=== PATIENT | male | born 1995 | race Two or more races ===

== ENCOUNTER 2019-10-30 18:32 | Emergency (ER) | payer MEDICAID ==
[~2019-10-30] VITALS: Ht 177.8 cm; Wt 79.4 kg
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
--- NOTE | 2019-10-30 18:56 | NUR ---
per dr. og, pt will not need any interventions, pt will just be for obs
--- NOTE | 2019-10-30 19:02 | NUR ---
REPORT GIVEN TO MISAEL PISANO FOR [facility]LL[facility]
--- NOTE | 2019-10-30 19:05 | NUR ---
[employer] AT BEDSIDE SPEAKING WITH PATIENT
[2019-10-30 19:22] VITALS: BP 124/71
--- NOTE | 2019-10-30 19:23 | NUR ---
PATIENT IS AAOX3. PATIENT STATES, "THE TAPE IS PULLING ON MY HAIR". TAPE IS READJUSTED ON THE IV LINE. CONNECTED TO MONITOR. BREATHING EVENLY AND UNLABORED ON ROOM AIR. SITTER AT BEDSIDE.
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
--- NOTE | 2019-10-30 19:33 | NUR ---
PATIENT NOTIFIED OF GIRLFRIEND'S CONCERN. PATIENT ASSESSED. AAOX4.
--- NOTE | 2019-10-30 20:53 | NUR ---
IV removed. Catheter intact and site benign. Pressure and 4x4 applied to site. No bleeding noted.
--- NOTE | 2019-10-30 21:05 | NUR ---
PATIENT LEFT. NOTIFIED.
== END 2019-10-30 21:08 | disposition left against medical advice (07) ==
LOC: ER 18:35
DX: T40.4X1A Poisoning by other synthetic narcotics, accidental (unintentional), initial encounter (principal); R45.1 Restlessness and agitation; Z60.2 Problems related to living alone; Y92.89 Other specified places as the place of occurrence of the external cause